=== PATIENT | female | born 1950 | race Caucasian/White ===

== ENCOUNTER 2018-07-06 05:34 | Outpatient (CLI) | payer MEDICARE ==
[~2018-07-06] VITALS: Ht 165.1 cm; Wt 93.0 kg
[~2018-07-06 05:34] MED LIST: ASP81TEC PO; MULT-608 PO; OMEP-10 PO; PRAV80TA2 PO
[2018-07-06] MEDS ORDERED: ASPI-999 PO (12:08)
[2018-07-06] MEDS ORDERED: OMEP20CA12 PO (12:08)
[2018-07-06] MEDS ORDERED: MULT1CAP27 PO (12:08)
[2018-07-06] MEDS ORDERED: LISI-556 PO (12:08)
== END 2018-07-06 12:12 | disposition home or self-care (01) ==
LOC: PREOP 05:34
PROVIDERS: ATTEND Otolaryngology Otolaryngology/Facial Plastic Surgery
DX: Z01.818 Encounter for other preprocedural examination (principal)

== ENCOUNTER 2018-07-14 08:27 | Day surgery (SDC) | payer MEDICARE ==
[~2018-07-14] VITALS: Ht 165.1 cm; Wt 93.0 kg
[~2018-07-14 08:27] MED LIST changes: +ASPI-999 PO; +LISI-556 PO; +MULT1CAP27 PO; +OMEP20CA12 PO
[2018-07-14] MEDS ORDERED: LACTATED RINGERS 1,000 ML IV PRN (08:38)
--- OUTSIDE RECORDS SUMMARY | 2018-07-14 08:47 | XMS REPORT ---
Author Author OFELIA MELENDEZ [facility] Address [address] [place] [address] Care Team Providers Care Compensation Business Partner Name Role Phone AL OFELIA Unavailable PROBLEMS Type Condition ICD9-CM Code [id number] Code Onset Dates Condition Status SNOMED Code Problem Essential (primary) hypertension I10 Active 82808098 Problem Type 2 diabetes mellitus without complications E11.9 Active 733829314 Problem Prediabetes R73.09 Active 684978387 Problem Essential hypertension I10 Active 74547488 Problem Mixed hyperlipidemia E78.2 Active 621426427 Problem Allergic rhinitis due to pollen J30.1 Active 19816650 ALLERGIES Substance Reaction Event Type Date Status Azithromycin Unknown Drug Allergy Mar, Active Penicillins Unknown Non Drug Allergy Mar, Active ENCOUNTERS Encounter Location Date Diagnosis [facility] [address] [place] [address] May, Well woman exam (no gynecological exam) Z00.00 and Blood glucose elevated R73.[address] [address] May, Mixed hyperlipidemia E78.[address] [address] Mar, Plant allergic contact dermatitis L23.[address] [address] February, [address] [address] Jan, Mixed hyperlipidemia E78.[address] [address] Jan, Dizziness R42 ; Essential hypertension I10 and Type 2 diabetes mellitus without complications E11.[address] [address] Jul, Type 2 diabetes mellitus without complications E11.9 ; Mixed hyperlipidemia E78.2 and Essential hypertension I10 [facility] [address] [place] [address] Jun, [facility] [address] [place] [address] Jun, Type 2 diabetes mellitus without complications E11.9 ; Mixed hyperlipidemia E78.2 and Essential hypertension I10 [facility] [address] [place] [address] Jun, [facility] [address] [place] [address] May, [facility] [address] [place] [address] Apr, [facility] [address] [address] Apr, [facility] [address] [address] Apr, [facility] [address] [address] February, Mixed hyperlipidemia E78.2 and Type 2 diabetes mellitus without complications E11.[address] [address] February, Essential ( primary) hypertension I10 ; Type 2 diabetes mellitus without complications E11.9 and Mixed hyperlipidemia E78.[address] [address] Nov, [address] [address] May, Routine gynecological examination Z01.419 ; Breast cancer screening Z12.39 ; Screening for colon cancer Z12.11 ; Mixed hyperlipidemia E78.2 ; Allergic rhinitis due to pollen J30.1 ; Prediabetes R73.09 and Essential hypertension I10 [facility] [address] [place] [address] Apr, Type 2 diabetes mellitus without complications E11.9 ; Mixed hyperlipidemia E78.2 and Essential (primary) hypertension I10 [facility] [address] [place] [address] Sep, Urinary tract infection, site not specified N39.[address] [address] Aug, [facility] [place] [address] [place] [address] Aug, Hematuria R31.9 [facility] [place] [address] [place] [address] Jul, [facility] [place] [address] [place] [address] Jun, Essential hypertension, benign 401.1 ; Mixed hyperlipidemia 272.2 and Diabetes mellitus without mention of complication, type II or unspecified type, not stated as uncontrolled 250.00 [facility] [place] [address] [place] [address] May, [facility] [address] [place], [place] [address] [place] [address] Jan, [facility] [address] [place] [id number] [place] [address] Jan, [facility] [place] [address] [place] [address] Dec, [facility] [address] [place] [address] [place] [address] Dec, [facility] [address] [place] [address] Nov, [facility] [address] [place] [address] [place] [address] Nov, [facility] [address] [place] [address] [address] Aug, [facility] [place] [address] [place] [address] Aug, [facility] [place] [address] [place] [address] Jul, [facility] [address] [place] [address] [place] [address] Jul, [facility] [place] [address] [place] [address] Jul, [facility] [address] [place] [id number] [address] Jul, [facility] [place] [address] [facility] [place] [address] Jun, [facility] [place] [address] [facility] [place] [address] Jun, [facility] [address] [facility] [id number] [address] Jun, [facility] [address] [id number] [place] [address] Jun, [facility] [place] [address] [place] [address] May, [facility] [address] [id number] [address] May, [facility] [place] [address] [place] [address] Mar, [facility] [address] [id number] [address] Mar, [facility] [place] [address] [place] [address] February, [facility] [address] [id number] [address] February, [facility] [address] [id number] [address] Jan, [facility] [place] [address] [place] [address] Jan, [facility] [address] [id number] [address] Jan, [facility] [place] [address] [place] [address] Dec, [facility] [place] [address] [place] [address] Dec, [facility] [address] [id number] [address] Dec, [facility] [address] [id number] [address] Dec, [facility] [address] [id number] [address] Dec, [facility] [address] [place] [address] Dec, [facility] [address] [address] Dec, [facility] [place] [address] Nov, [facility] [address] [place] [address] Nov, [facility] [address] [place] [address] Oct, [facility] [address] [place] [address] Oct, [facility] [address]65100[place] [address] Oct, [address] [address] Oct, IMMUNIZATIONS No Known Immunizations SOCIAL HISTORY Never Assessed REASON FOR VISIT poison hermilo under eye since yesterday. Kerry PLAN OF CARE Activity Details Follow Up prn Reason: VITAL SIGNS Height 64 in 2018-03-25 Weight 217.0 lbs 2018-03-25 Temperature 98.7 degrees Fahrenheit 2018-03-25 Heart Rate 88 bpm 2018-03-25 Respiratory Rate 18 2018-03-25 BMI 37.24 kg/m2 2018-03-25 Blood pressure systolic 104 mmHg 2018-03-25 Blood pressure diastolic 68 mmHg 2018-03-25 MEDICATIONS Medication Instructions Dosage Frequency Start Date End Date Duration Status Fluticasone Propionate 50 MCG/ACT Nasally Once a day 1 spray in each nostril 24h Active Multivitamin Adult - Active Aspirin 81 mg chew 1 tablet (81 mg) by oral route once daily Oct, Active Omeprazole 20 mg TAKE ONE CAPSULE BY MOUTH ONCE DAILY BEFORE A MEAL. 30 Active Lisinopril 5 MG TAKE ONE TABLET BY MOUTH ONCE DAILY. Active ICaps Lutein & Zeaxanthin - Orally Once a day 2 tabs 24h Active RESULTS No Results PROCEDURES Procedure Date Ordered Result Body Site [facility] VISIT ESTABLISHED PATIENT March 25, 2018 INSTRUCTIONS MEDICATIONS ADMINISTERED No Known Medications MEDICAL (GENERAL) HISTORY Type Description Date Surgical History breast reduction 1978 Surgical History right ankle fracture 1999 Surgical History right ear surgery 2015 Hospitalization History surgeries
--- OUTSIDE RECORDS SUMMARY | 2018-07-14 08:47 | XMS REPORT ---
Author Author LUKE GONG Organization [facility] [address] [place] Address [address] [place] [address] Care Team Providers Care Film Sound Engineer Name Role Phone LUKE GONG Unavailable PROBLEMS Type Condition ICD9-CM Code [id number] Code Onset Dates Condition Status SNOMED Code Problem Essential (primary) hypertension I10 Active 67172836 Problem Type 2 diabetes mellitus without complications E11.9 Active 311989200 Problem Prediabetes R73.09 Active 072155896 Problem Essential hypertension I10 Active 30560676 Problem Mixed hyperlipidemia E78.2 Active 952856185 Problem Allergic rhinitis due to pollen J30.1 Active 21896357 ALLERGIES No Information ENCOUNTERS Encounter Location Date Diagnosis [facility] [address] [place] [address] [place] [address] May, Well woman exam (no gynecological exam) Z00.00 and Blood glucose elevated R73.9 [facility] [address] [address] May, Mixed hyperlipidemia E78.[address] [address] Mar, Plant allergic contact dermatitis L23.[address] [address] February, [address] [address] Jan, Mixed hyperlipidemia E78.[address] [address] Jan, Dizziness R42 ; Essential hypertension I10 and Type 2 diabetes mellitus without complications E11.[address] [address] Jul, Type 2 diabetes mellitus without complications E11.9 ; Mixed hyperlipidemia E78.2 and Essential hypertension I10 [facility] [address] [place] [address] Jun, [facility] [place] [address] [place] [address] Jun, Type 2 diabetes mellitus without complications E11.9 ; Mixed hyperlipidemia E78.2 and Essential hypertension I10 [facility] [place] [address] [place] [address] Jun, [facility] [address] [place] [address] May, [facility] [address] [place] [address] Apr, [facility] [place] [address] [place] [address] Apr, [facility] [place] [address] [place] [address] Apr, [facility] [place] [address] [place] [address] February, Mixed hyperlipidemia E78.2 and Type 2 diabetes mellitus without complications E11.9 [facility] [place] [address] [place] [address] February, Essential ( primary) hypertension I10 ; Type 2 diabetes mellitus without complications E11.9 and Mixed hyperlipidemia E78.2 [facility] [place] [address] [place] [address] Nov, [facility] [place] [address] [place] [address] May, Routine gynecological examination Z01.419 ; Breast cancer screening Z12.39 ; Screening for colon cancer Z12.11 ; Mixed hyperlipidemia E78.2 ; Allergic rhinitis due to pollen J30.1 ; Prediabetes R73.09 and Essential hypertension I10 [facility] [place] [address] [place] [address] Apr, Type 2 diabetes mellitus without complications E11.9 ; Mixed hyperlipidemia E78.2 and Essential (primary) hypertension I10 [facility] [place] [address] [place] [address] Sep, Urinary tract infection, site not specified N39.0 [facility] [place] [address] [place] [address] Aug, [facility] [place] [address] [place] [address] Aug, Hematuria R31.9 [facility] [place] [address] [place] [address] Jul, [facility] [place] [address] [place] [address] Jun, Essential hypertension, benign 401.1 ; Mixed hyperlipidemia 272.2 and Diabetes mellitus without mention of complication, type II or unspecified type, not stated as uncontrolled 250.00 [facility] [place] [address] [place] [address] May, [facility] [address] [place] [id number] [place] [address] Jan, [facility] [address] [place] [id number] [place] [address]- [address] Jan, [facility] [place] [address] [place] [address] Dec, [facility] [address] [place] [id number] [place] [address]- [address] Dec, [facility] [place] [address] [place] [address] Nov, [facility] [id number] [place] [address] Nov, [facility] [address] [place] [address] [place] [address] Aug, [facility] [place] [address] [place] [address] Aug, [facility] [place] [address] [place] [address] Jul, [facility] [address] [place] [address] Jul, [facility] [place] [address] [place] [address] Jul, [facility] [address] [facility] [place] [id number] [address] Jul, [facility] [place] [address] [place] [address] Jun, [facility] [place] [address] [place] [address] Jun, [facility] [address] [place] [id number] [address] Jun, [facility] [id number] [address] 269[address] Jun, [facility] [place] [address] [place] [address] May, [facility] [address] [id number] [address] May, [facility] [place] [address] [place] [address] Mar, [facility] [address] [place] [id number] [address] Mar, [facility] [place] [address] [place] [address] February, [facility] [address] [id number] [address] February, [facility] [address] [id number] [address] Jan, [facility] [place] [address] [place] [address] Jan, [facility] [address] [id number] [address] Jan, [facility] [place] [address] [place] [address] Dec, [facility] [place] [address] [place] [address] Dec, [facility] [address] [id number] [address] Dec, [facility] [address] [address] Dec, [facility] [address], [place] [address] Dec, [facility] [address] [place] [address] Dec, [facility] [address] [place] [address]- [address] Dec, [facility] [address] [place] [address] Nov, [facility] [address] [place] [address]- 5027 Nov, [facility] [address] [id number] [place] [address] Oct, [facility] [place] [address] [place] [address] Oct, [facility] [address]100[place] [address] Oct, [facility] [address] [place] [address] Oct, IMMUNIZATIONS No Known Immunizations SOCIAL HISTORY Never Assessed REASON FOR VISIT Lab (walk-in)FASTING Jbishop PLAN OF CARE Activity Details Follow Up prn Reason: VITAL SIGNS MEDICATIONS Unknown Medications RESULTS No Results PROCEDURES Procedure Date Ordered Result Body Site LAB NOT BILLED BY [facility] Jun 09, 2018 HIRA HUGO* Jun 09, 2018 INSTRUCTIONS MEDICATIONS ADMINISTERED No Known Medications MEDICAL (GENERAL) HISTORY Type Description Date Surgical History breast reduction 1978 Surgical History right ankle fracture 1999 Surgical History right ear surgery 2014 Hospitalization History surgeries
--- OUTSIDE RECORDS SUMMARY | 2018-07-14 08:47 | XMS REPORT ---
Author Author LUKE GONG Organization [facility] [address] [place] Address [address] [place] [address] Care Team Providers Care Rope Laying Machine Operator Name Role Phone LUKE GONG Unavailable PROBLEMS Type Condition ICD9-CM Code SBA32-ZB Code Onset Dates Condition Status SNOMED Code Problem Essential (primary) hypertension I10 Active 43491373 Problem Type 2 diabetes mellitus without complications E11.9 Active 364390705 Problem Prediabetes R73.09 Active 932627375 Problem Essential hypertension I10 Active 65474110 Problem Mixed hyperlipidemia E78.2 Active 557656016 Problem Allergic rhinitis due to pollen J30.1 Active 65207374 ALLERGIES No Information ENCOUNTERS Encounter Location Date Diagnosis [facility] [place] [address] [place] [address] Mar, Plant allergic contact dermatitis L23.7 [facility] [place] [address] [place] [address] February, [facility] [place] [address] [place] [address] Jan, Mixed hyperlipidemia E78.[address] [address] Jan, Dizziness R42 ; Essential hypertension I10 and Type 2 diabetes mellitus without complications E11.9 [facility] [place] [address] [place] [address] Jul, Type 2 diabetes mellitus without complications E11.9 ; Mixed hyperlipidemia E78.2 and Essential hypertension I10 [facility] [place] [address] [place] [address] Jun, [facility] [address] [address] Jun, Type 2 diabetes mellitus without complications E11.9 ; Mixed hyperlipidemia E78.2 and Essential hypertension I10 [facility] [place] [address] [place] [address] Jun, [facility] [address] [address] May, [facility] [place] [address] [place] [address] Apr, [facility] [place] [address] [place] [address] Apr, [facility] [place] [address] [place] [address] Apr, [facility] [address] [address] February, Mixed hyperlipidemia E78.2 and Type 2 diabetes mellitus without complications E11.9 [facility] [address] [address] February, Essential ( primary) hypertension I10 ; Type 2 diabetes mellitus without complications E11.9 and Mixed hyperlipidemia E78.2 [facility] [address] [address] Nov, [facility] [address] [address] May, Routine gynecological examination Z01.419 ; Breast cancer screening Z12.39 ; Screening for colon cancer Z12.11 ; Mixed hyperlipidemia E78.2 ; Allergic rhinitis due to pollen J30.1 ; Prediabetes R73.09 and Essential hypertension I10 [address] [address] Apr, Type 2 diabetes mellitus without complications E11.9 ; Mixed hyperlipidemia E78.2 and Essential (primary) hypertension I10 [facility] [address] [address] Sep, Urinary tract infection, site not specified N39.0 [facility] [address] [address] Aug, [facility] [address] [address] Aug, Hematuria R31.[address] [address] Jul, [address] [address] Jun, Essential hypertension, benign 401.1 ; Mixed hyperlipidemia 272.2 and Diabetes mellitus without mention of complication, type II or unspecified type, not stated as uncontrolled 250.[address] [address] May, [facility] [address] [facility] [id number] [address] 14 Jan, 2014 [facility] [address] [address] [id number] [address]- [address] Jan, 2014 [facility] [place] [address] [place] [address] Dec, 2014 [facility] [address] [address] Dec, 2014 [facility] [place] [address] [place] [address] Nov, 2014 [facility] [address] [place] [id number] [address] Nov, 2014 [facility] [address] [address]- [address] Aug, [facility] [place] [address] [place] [address] Aug, [facility] [place] [address] [place] [address] Jul, [facility] [address] [id number] [address]- [address] Jul, [facility] [place] [address] [place] [address] Jul, [facility] [address] [address] Jul, [facility] [place] [address] [place] [address] Jun, [facility] [place] [address] [place] [address] Jun, [facility] [address] [id number] [address]- [address] Jun, [facility] [address] [id number] [address]- 2364 Jun, [facility] [place] [address] [place] [address] May, [facility] [address] [address] May, [facility] [place] [address] [place] [address] Mar, [facility] [address] [address]- [address] Mar, [facility] [place] [address] [place] [address] February, [facility] [address] [address] February, [facility] [address] [address] Jan, [facility] [place] [address] [place] [address] Jan, [facility] [address] [place] [address] Jan, [facility] [place] [address] [place] [address] Dec, [facility] [place] [address] [place] [address] Dec, [facility] [address] [address] Dec, [facility] [address] [place] [address] Dec, [facility] [address] [address]- [address] Dec, [facility] [place] [address] [place] [address] Dec, [facility] [address] [address]- [address] Dec, [facility] [place] [address] [place] [address] Nov, [facility] [address] [id number] [address]- 1817 Nov, [facility] [id number] [address]- 78[address] Oct, [facility] [place] [address] [place] [address] Oct, [facility] [address] [facility] [id number] [address] Oct, [facility] [address] [place] [address] Oct, IMMUNIZATIONS No Known Immunizations SOCIAL HISTORY Never Assessed REASON FOR VISIT Lab results PLAN OF CARE VITAL SIGNS MEDICATIONS Unknown Medications RESULTS No Results PROCEDURES No Known procedures INSTRUCTIONS MEDICATIONS ADMINISTERED No Known Medications MEDICAL (GENERAL) HISTORY Type Description Date Surgical History breast reduction 1978 Surgical History right ankle fracture 1999 Surgical History right ear surgery 2014 Hospitalization History surgeries
--- OUTSIDE RECORDS SUMMARY | 2018-07-14 08:47 | XMS REPORT ---
Author Author LUKE GONG Organization [facility] [address] [place] Address [address] [place] [address] Care Team Providers Care Geosciences Associate Professor Name Role Phone LUKE GONG Unavailable PROBLEMS Type Condition ICD9-CM Code NTE19-ZT Code Onset Dates Condition Status SNOMED Code Problem Essential (primary) hypertension I10 Active 17786383 Problem Type 2 diabetes mellitus without complications E11.9 Active 328517461 Problem Prediabetes R73.09 Active 082184000 Problem Essential hypertension I10 Active 11503633 Problem Mixed hyperlipidemia E78.2 Active 198648231 Problem Allergic rhinitis due to pollen J30.1 Active 96090480 ALLERGIES No Information ENCOUNTERS Encounter Location Date Diagnosis [facility] [address] [place] [address] Mar, Plant allergic contact dermatitis L23.[address] [address] February, [address] [address] Jan, Mixed hyperlipidemia E78.[address] [address] Jan, Dizziness R42 ; Essential hypertension I10 and Type 2 diabetes mellitus without complications E11.[address] [address] Jul, Type 2 diabetes mellitus without complications E11.9 ; Mixed hyperlipidemia E78.2 and Essential hypertension I10 [address] [address] Jun, [address] [address] Jun, Type 2 diabetes mellitus without complications E11.9 ; Mixed hyperlipidemia E78.2 and Essential hypertension I10 [address] [address] Jun, [address] [address] May, [address] [address] Apr, [address] [address] Apr, [address] [address] Apr, [address] [address] February, Mixed hyperlipidemia E78.2 and Type 2 diabetes mellitus without complications E11.[address] [address] February, Essential ( primary) hypertension I10 ; Type 2 diabetes mellitus without complications E11.9 and Mixed hyperlipidemia E78.[address] [address] Nov, [address] [address] May, Routine gynecological examination Z01.419 ; Breast cancer screening Z12.39 ; Screening for colon cancer Z12.11 ; Mixed hyperlipidemia E78.2 ; Allergic rhinitis due to pollen J30.1 ; Prediabetes R73.09 and Essential hypertension I10 [address] [address] Apr, Type 2 diabetes mellitus without complications E11.9 ; Mixed hyperlipidemia E78.2 and Essential (primary) hypertension I10 [address] [address] Sep, Urinary tract infection, site not specified N39.[address] [address] Aug, [address] [address] Aug, Hematuria R31.[address] [address] Jul, [address] [address] Jun, Essential hypertension, benign 401.1 ; Mixed hyperlipidemia 272.2 and Diabetes mellitus without mention of complication, type II or unspecified type, not stated as uncontrolled 250.00 [facility] [place] [address] [place] [address] May, [facility] [address] [address] Jan, [facility] [address] [address] Jan, [facility] [place] [address] [place] [address] Dec, [facility] [address] [address] Dec, [facility] [place] [address] [place] [address] Nov, [facility] [address] [address] Nov, [facility] [address] [address] Aug, [facility] [place] [address] [place] [address] Aug, [facility] [place] [address] [place] [address] Jul, [facility] [address] [address] Jul, [facility] [place] [address] [place] [address] Jul, [facility] [address] [address] Jul, [facility] [place] [address] [place] [address] Jun, [facility] [place] [address] [place] [address] Jun, [facility] [id number] [address] Jun, [facility] [address] [address] Jun, [facility] [place] [address] [place] [facility] [place] [address] May, [facility] [id number] [address] May, [facility] [place] [address] [place] [address] Mar, [facility] [id number] [address] Mar, [facility] [place] [address] [place] [address] February, [facility] [id number] [address] February, [facility] [id number] [address] Jan, [facility] [place] [address] [place] [address] Jan, [facility] [id number] [address] Jan, [facility] [place] [address] [place] [facility] [place] [address] Dec, [facility] [place] [address] [place] [address] 18 Dec, 2013 [facility] [id number] [address] 18 Dec, 2013 [facility] [id number] [address] 18 Dec, 2013 [facility] [id number] [address] 14 Dec, 2013 [facility] [place] [address] [place] [address] 13 Dec, 2013 [facility] [id number] [address] 13 Dec, 2013 [facility] [place] [address] [place] [address] Nov, [facility] [address] [facility] [id number] [address] Nov, [facility] [address] [facility] [id number] [address] Oct, [address] [address] Oct, [facility] [address] [facility] [id number] [address] Oct, [address] [address] Oct, IMMUNIZATIONS No Known Immunizations SOCIAL HISTORY Never Assessed REASON FOR VISIT med refill request PLAN OF CARE VITAL SIGNS MEDICATIONS Medication Instructions Dosage Frequency Start Date End Date Duration Status Omeprazole 20 mg TAKE ONE CAPSULE BY MOUTH ONCE DAILY BEFORE A MEAL. 30 Active RESULTS No Results PROCEDURES No Known procedures INSTRUCTIONS MEDICATIONS ADMINISTERED No Known Medications MEDICAL (GENERAL) HISTORY Type Description Date Surgical History breast reduction 1978 Surgical History right ankle fracture 1999 Surgical History right ear surgery 2014 Hospitalization History surgeries
--- OUTSIDE RECORDS SUMMARY | 2018-07-14 08:48 | XMS REPORT ---
Author Author LUKE GONG Organization [facility] [address] [place] Address [address] [place] [address] Care Team Providers Care Core Drill Operator Helper Name Role Phone LUKE GONG Unavailable PROBLEMS Type Condition ICD9-CM Code AVH23-HO Code Onset Dates Condition Status SNOMED Code Problem Essential (primary) hypertension I10 Active 26310088 Problem Type 2 diabetes mellitus without complications E11.9 Active 800691381 Problem Prediabetes R73.09 Active 590147021 Problem Essential hypertension I10 Active 87457011 Problem Mixed hyperlipidemia E78.2 Active 723931655 Problem Allergic rhinitis due to pollen J30.1 Active 33689031 ALLERGIES Substance Reaction Event Type Date Status Azithromycin Unknown Drug Allergy Jan, Active Penicillins Unknown Non Drug Allergy Jan, Active Macrolides Unknown Non Drug Allergy Jan, Active ENCOUNTERS Encounter Location Date Diagnosis [facility] [place] [address] [place] [address] Mar, Plant allergic contact dermatitis L23.7 [facility] [address] [address] February, [facility] [address] [address] Jan, Mixed hyperlipidemia E78.2 [facility] [place] [address] [place] [address] Jan, Dizziness R42 ; Essential hypertension I10 and Type 2 diabetes mellitus without complications E11.9 [facility] [place] [address] [place] [address] Jul, Type 2 diabetes mellitus without complications E11.9 ; Mixed hyperlipidemia E78.2 and Essential hypertension I10 [facility] [place] [address] [place] [address] Jun, [facility] [address] [address] Jun, Type 2 diabetes mellitus without complications E11.9 ; Mixed hyperlipidemia E78.2 and Essential hypertension I10 [facility] [place] [address] [place] [address], [place] [address] Jun, [facility] [place] [address] [place] [address] May, [facility] [place] [address] [place] [address] Apr, [facility] [place] [address] [place] [address] Apr, [facility] [place] [address] [place] [address] Apr, [facility] [place] [address] [place] [address] February, Mixed hyperlipidemia E78.2 and Type 2 diabetes mellitus without complications E11.9 [facility] [place] [address] [place] [address] February, Essential ( primary) hypertension I10 ; Type 2 diabetes mellitus without complications E11.9 and Mixed hyperlipidemia E78.2 [facility] [place] [address] [place] [address] Nov, [facility] [place] [address] [place] [address] May, Routine gynecological examination Z01.419 ; Breast cancer screening Z12.39 ; Screening for colon cancer Z12.11 ; Mixed hyperlipidemia E78.2 ; Allergic rhinitis due to pollen J30.1 ; Prediabetes R73.09 and Essential hypertension I10 [facility] [place] [address] [place] [address] Apr, Type 2 diabetes mellitus without complications E11.9 ; Mixed hyperlipidemia E78.2 and Essential (primary) hypertension I10 [facility] [place] [address] [place] [address] Sep, Urinary tract infection, site not specified N39.0 [facility] [place] [address] [place] [address] Aug, [facility] [place] [address] [place] [address] Aug, Hematuria R31.9 [facility] [place] [address] [place] [address] Jul, [facility] [place] [address] [place] [address] Jun, Essential hypertension, benign 401.1 ; Mixed hyperlipidemia 272.2 and Diabetes mellitus without mention of complication, type II or unspecified type, not stated as uncontrolled 250.00 [facility] [place] [address] [place] [address] May, [facility] [address] [address] Jan, [facility] [address] [address] Jan, [facility] [place] [address] [place] [address] Dec, [facility] [address] [place] [address] Dec, [facility] [place] [address] [place] [address] Nov, [facility] [address] [place] [address] Nov, [facility] [address] [place] [address] Aug, [facility] [place] [address] [place] [address] Aug, [facility] [place] [address] [place] [address] Jul, [facility] [address] [address] Jul, [facility] [place] [address] [place] [address] Jul, [facility] [address] [address] Jul, [facility] [place] [address] [place] [address] Jun, [facility] [place] [address] [place] [address] Jun, [facility] [address] [address] Jun, [facility] [address] [address] Jun, [facility] [place] [address] [place] [address] May, [facility] [address] [facility] [id number] [address] May, [facility] [place] [address] [place] [address] Mar, [facility] [address] [facility] [id number] [address] Mar, [facility] [place] [address] [place] [address] February, [facility] [address] [facility] [id number] [address] February, [facility] [address] [facility] [id number] [place] [address] Jan, [facility] [place] [address] [place] [address] Jan, [facility] [id number] [address] Jan, [facility] [place] [address] [place] [address] Dec, [facility] [place] [address] [place] [address] Dec, [facility] [id number] [place] [address] Dec, [facility] [id number] [address] Dec, [facility] [id number] [address] Dec, [facility] [place] [address] [place] [address] Dec, [facility] [address] [facility] [id number] [address] Dec, [facility] [place] [address] [place] [address] Nov, [facility] [id number] [address] Nov, [facility] [id number] [address] Oct, [facility] [place] [address] [place] [address] Oct, [facility] [address] [facility] [id number] [place] [address] Oct, [facility] [place] [address] [place] [address] Oct, IMMUNIZATIONS No Known Immunizations SOCIAL HISTORY Never Assessed REASON FOR VISIT Dizziness this past weekend, notices it when her head is below her shoulders, BP has been elevated at times Debbie Bernal PLAN OF CARE Activity Details Follow Up prn Reason: VITAL SIGNS Height 64 in 2018-02-07 Weight 213.9 lbs 2018-02-07 Temperature 98 degrees Fahrenheit 2018-02-07 Heart Rate 98 bpm 2018-02-07 Respiratory Rate 18 2018-02-07 BMI 36.71 kg/m2 2018-02-07 Blood pressure systolic 128 mmHg 2018-02-07 Blood pressure diastolic 94 mmHg 2018-02-07 MEDICATIONS Medication Instructions Dosage Frequency Start Date End Date Duration Status Fluticasone Propionate 50 MCG/ACT Nasally Once a day 1 spray in each nostril 24h Active Multivitamin Adult - Active Omeprazole 20MG TAKE ONE CAPSULE BY MOUTH ONCE DAILY BEFORE A MEAL. 30 Active ICaps Lutein & Zeaxanthin - Orally Once a day 2 tabs 24h Active Aspirin 81 mg chew 1 tablet (81 mg) by oral route once daily Oct, Active Lisinopril 5 MG TAKE ONE TABLET BY MOUTH ONCE DAILY. Active RESULTS No Results PROCEDURES Procedure Date Ordered Result Body Site ROUTINE VENIPUNCTURE 2018-02-07 N/A Hemoglobin Test Send Out 0 dollar February 07, 2018 [facility] VISIT ESTABLISHED PATIENT February 07, 2018 LAB NOT BILLED BY [facility] February 07, 2018 INSTRUCTIONS MEDICATIONS ADMINISTERED No Known Medications MEDICAL (GENERAL) HISTORY Type Description Date Surgical History breast reduction 1978 Surgical History right ankle fracture 1999 Surgical History right ear surgery 2014 Hospitalization History surgeries
--- OUTSIDE RECORDS SUMMARY | 2018-07-14 08:48 | XMS REPORT ---
Author Author ZI COY [facility] Address [address] [place] [address] Care Team Providers Care Vessel Scrapper Name Role Phone ZI COY Unavailable PROBLEMS Type Condition ICD9-CM Code YVO96-LS Code Onset Dates Condition Status SNOMED Code Problem Other and unspecified hyperlipidemia 272.4 Active 59547363 Problem Diabetes mellitus without mention of complication, type II or unspecified type, not stated as uncontrolled 250.00 Active 039115730 Problem Mixed hyperlipidemia 272.2 Active 194352745 Problem Essential (primary) hypertension I10 Active 13924424 Problem Type 2 diabetes mellitus without complications E11.9 Active 710804124 Problem Prediabetes R73.09 Active 302275066 Problem Essential hypertension I10 Active 41506053 Problem Mixed hyperlipidemia E78.2 Active 596301602 Problem Allergic rhinitis due to pollen J30.1 Active 69639158 Problem Unspecified abnormal mammogram 793.80 Active 520546968 Problem Chest pain, unspecified 786.50 Active 18892548 Problem Routine gynecological examination V72.31 Active 833986802989525 Problem Essential hypertension, benign 401.1 Active 5552868 Problem Unspecified otalgia 388.70 Active 60966975 Problem Urinary tract infection, site not specified 599.0 Active 35994082 Problem Impacted cerumen 380.4 Active 52017522 Problem Unspecified essential hypertension 401.9 Active 62169893 Problem Obesity, unspecified 278.00 Active 988931905 ALLERGIES No Information SOCIAL HISTORY Never Assessed PLAN OF CARE Activity Details Follow Up prn Reason: VITAL SIGNS MEDICATIONS No Known Medications RESULTS Name Result Date Reference Range A1C 2017-03-03 Hemoglobin A1c 6.2 4.8-5.6 CBC 2017-03-03 WBC 6.8 3.4-10.8 RBC 4.50 3.77-5.28 Hemoglobin 13.5 11.1-15.9 Hematocrit 40.1 34.0-46.6 MCV 89 79-97 MCH 30.0 26.6-33.0 MCHC 33.7 31.5-35.7 RDW 13.5 12.3-15.4 Platelets 258 150-379 Neutrophils 53 Lymphs 36 Monocytes 8 Eos 3 Basos 0 Neutrophils (Absolute) 3.6 1.4-7.0 Lymphs (Absolute) 2.5 0.7-3.1 Monocytes(Absolute) 0.5 0.1-0.9 Eos (Absolute) 0.2 0.0-0.4 Baso (Absolute) 0.0 0.0-0.2 Immature Granulocytes 0 Immature Grans (Abs) 0.0 0.0-0.1 LIPID PANEL 2017-03-03 Cholesterol, Total 231 100-199 Triglycerides 193 0-149 HDL Cholesterol 46 >39 VLDL Cholesterol Nelson 39 5-40 LDL Cholesterol Calc 146 0-99 CMP 2017-03-03 Glucose, Serum 154 65-99 BUN 20 8-27 Creatinine, Serum 0.75 0.57-1.00 eGFR If NonAfricn Am 83 >59 eGFR If Africn Am 96 >59 BUN/Creatinine Ratio 27 12-28 Sodium, Serum 142 134-144 Potassium, Serum 4.1 3.5-5.2 Chloride, Serum 104 96-106 Carbon Dioxide, Total 22 18-29 Calcium, Serum 9.4 8.7-10.3 Protein, Total, Serum 7.0 6.0-8.5 Albumin, Serum 4.5 3.6-4.8 Globulin, Total 2.5 1.5-4.5 A/G Ratio 1.8 1.2-2.2 Bilirubin, Total 0.7 0.0-1.2 Alkaline Phosphatase, S 83 39-117 AST (SGOT) 74 0-40 ALT (SGPT) 74 0-32 PROCEDURES Procedure Date Ordered Result Body Site ROUTINE VENIPUNCTURE 2017-03-03 N/A GLYCATED HEMOGLOBIN TEST March 03, 2017 LAB NOT BILLED BY [facility] March 03, 2017 IMMUNIZATIONS No Known Immunizations MEDICAL (GENERAL) HISTORY Type Description Date Surgical History breast reduction 1978 Surgical History right ankle fracture 1999 Surgical History right ear surgery 2014 Hospitalization History surgeries
--- OUTSIDE RECORDS SUMMARY | 2018-07-14 08:48 | XMS REPORT ---
Author Author [facility] [place] Address [address] [place] [address] Care Team Providers Care Test Preparer Name Role Phone ZI COY Unavailable PROBLEMS Type Condition ICD9-CM Code EFZ43-[id number] Code Onset Dates Condition Status SNOMED Code Problem Essential (primary) hypertension I10 Active 11959550 Problem Type 2 diabetes mellitus without complications E11.9 Active 991556071 Problem Prediabetes R73.09 Active 788314765 Problem Essential hypertension I10 Active 86256174 Problem Mixed hyperlipidemia E78.2 Active 693250528 Problem Allergic rhinitis due to pollen J30.1 Active 77056949 ALLERGIES No Information ENCOUNTERS Encounter Location Date Diagnosis [facility] [place] [address] [facility] [address] [id number] [place] [id number] Jan, [facility] [place] [address] [place] [address] [address] [id number] [place] [id number] Jan, Dizziness R42 ; Essential hypertension I10 and Type 2 diabetes mellitus without complications E11.9 [facility] [place] [address] [facility] [address] [id number] [place] [id number] Jul, Type 2 diabetes mellitus without complications E11.9 ; Mixed hyperlipidemia E78.2 and Essential hypertension I10 [facility] [place] [address] [facility] [address] [id number] [place] [id number] Jun, [facility] [place] [address] [facility] [address] [id number] [place] [id number] Jun, Type 2 diabetes mellitus without complications E11.9 ; Mixed hyperlipidemia E78.2 and Essential hypertension I10 [facility] [place] [address] [facility] [address] [id number] [place] [id number] Jun, [facility] [place] [address] [facility] [address] [id number] [place] [id number] May, [facility] [place] [address] [facility] [address] [id number] [place] [id number] Apr, [facility] [place] [address] [facility] [address] [id number] [place] [id number] Apr, [facility] [place] [address] [facility] [address] [id number] [place] [id number] Apr, [facility] [place] [address] [facility] [address] [id number] [place] [id number] February, Mixed hyperlipidemia E78.2 and Type 2 diabetes mellitus without complications E11.9 [facility] [place] [address] [facility] [address] [id number] [place] [id number] February, Essential (primary) hypertension I10 ; Type 2 diabetes mellitus without complications E11.9 and Mixed hyperlipidemia E78.2 [facility] [place] [address] [place] [address] [address] [id number] [place] [id number] Nov, [facility] [place] [address] [facility] [address] [id number] [place] [id number] May, Routine gynecological examination Z01.419 ; Breast cancer screening Z12.39 ; Screening for colon cancer Z12.11 ; Mixed hyperlipidemia E78.2 ; Allergic rhinitis due to pollen J30.1 ; Prediabetes R73.09 and Essential hypertension I10 [facility] [place] [address] [facility] [address] [id number] [place] [id number] Apr, Type 2 diabetes mellitus without complications E11.9 ; Mixed hyperlipidemia E78.2 and Essential (primary) hypertension I10 [facility] [place] [address] [facility] [address] [id number] [place] [address] Sep, Urinary tract infection, site not specified N39.0 [facility] [place] [address] [facility] [address] [id number] [place] [id number] Aug, [facility] [place] [address] [facility] [address] [id number] [place] [id number] Aug, Hematuria R31.9 [facility] [place] [address] [facility] [address] [id number] [place] [address] Jul, [facility] [place] [address] [facility] [address] [id number] [place] [address]0007 Jun, Essential hypertension, benign 401.1 ; Mixed hyperlipidemia 272.2 and Diabetes mellitus without mention of complication, type II or unspecified type, not stated as uncontrolled 250.00 [facility] [place] [address] [id number] [place] [id number] May, [facility] [address] [facility] [id number] [place] [address] Jan, [facility] [address] [facility] [id number] [place] [address] Jan, [facility] [place] [address] [facility] [address] [id number] [place] [id number] Dec, [facility] [address] [facility] [id number] [place] [address] Dec, [facility] [place] [address] [facility] [address] [id number] [place] [id number] Nov, [facility] [address] [facility] [id number] [place] [address] Nov, [facility] [place] [facility] [address] [facility] [id number] [facility] [address] Aug, [facility] [place] [address] [facility] [address] [id number] [place] [id number] Aug, [facility] [place] [address] [facility] [address] [id number] [place] [id number] Jul, [facility] [address] [facility] [id number] [place] [address]46 Jul, [facility] [place] [address] [id number] [place] [id number] Jul, [facility] [address] [facility] [id number] [place] [address] Jul, [facility] [place] [address] [facility] [address] [id number] [place] [address]44 Jun, [facility] [place] [address] [id number] [place] [address] Jun, [facility] [place] [facility] [address] [facility] [id number] [facility] [address] Jun, [facility] [place] [facility] [address] [id number] [facility] [address] Jun, [facility] [place] [address] [id number] [place] [id number] May, [facility] [address] [id number] [facility] May, [facility] [place] [address] [id number] [place] [id number] Mar, [facility] [address] [id number] [place] [address] Mar, [facility] [place] [address] [id number] [place] [id number] February, [facility] [address] [id number] [place] [address] February, [facility] [address] [id number] [place] [address] Jan, [facility] [place] [address] [id number] [place] [id number] Jan, [facility] [place] [facility] [address] [id number] [place] [address] Jan, [facility] [place] [address] [id number] [place] [id number] Dec, [facility] [place] [address] [id number] [place] [id number] Dec, [facility] [place] [facility] [address] [id number] [facility] [address] Dec, [facility] [place] [facility] [address] [id number] [place] [address] Dec, [facility] [place] [facility] [address] [id number] [facility] [address] Dec, [facility] [place] [address] [id number] [place] [id number] Dec, [facility] [address] [facility] [id number] [place] [address] Dec, [facility] [place] [address] [facility] [address] [id number] [place] [id number] Nov, [facility] [address] [facility] [id number], [place] [address] Nov, [facility] [address] [facility] [id number], [place] [address] Oct, [facility] [address] [facility] [address] [id number] [place] [address] Oct, [facility] [address] [facility] [id number] [place] [address] Oct, [facility] [address] [facility] [address] [id number] [place] [id number] Oct, IMMUNIZATIONS No Known Immunizations SOCIAL HISTORY Never Assessed REASON FOR VISIT PLAN OF CARE VITAL SIGNS MEDICATIONS Unknown Medications RESULTS No Results PROCEDURES No Known procedures INSTRUCTIONS MEDICATIONS ADMINISTERED No Known Medications MEDICAL (GENERAL) HISTORY Type Description Date Surgical History breast reduction 1978 Surgical History right ankle fracture 1999 Surgical History right ear surgery 2014 Hospitalization History surgeries
--- OUTSIDE RECORDS SUMMARY | 2018-07-14 08:48 | XMS REPORT ---
Author Author ZI COY Organization [employer] Address Unknown Phone Unavailable Care Team Providers Care Speech Therapy Teacher Name Role Phone ZI COY CP Unavailable Allergies No Known Allergies Problems Problem Type Condition Code Onset Dates Condition Status Problem Routine gynecological examination V72.31 Active Problem Unspecified essential hypertension 401.9 Active Problem Diabetes mellitus without mention of complication, type II or unspecified type, not stated as uncontrolled 250.00 Active Problem Unspecified abnormal mammogram 793.80 Active Problem Other and unspecified hyperlipidemia 272.4 Active Problem Urinary tract infection, site not specified 599.0 Active Problem Obesity, unspecified 278.00 Active Problem Unspecified otalgia 388.70 Active Problem Mixed hyperlipidemia 272.2 Active Problem Impacted cerumen 380.4 Active Problem Chest pain, unspecified 786.50 Active Problem Essential hypertension, benign 401.1 Active Medications Medication Code System Code Instructions Start Date End Date Status Dosage Atorvastatin Calcium [facility] [address]-18 40 MG Orally Once a day Jul 28, 2015 1 tablet Results No Known Results Summary Purpose eClinicalWorks Submission
--- OUTSIDE RECORDS SUMMARY | 2018-07-14 08:48 | XMS REPORT ---
Author Author ZI COY [facility] [place] Address [address] [place] [address] Care Team Providers Care Electrophysiologist Name Role Phone ZI COY Unavailable PROBLEMS Type Condition ICD9-CM Code AWJ66-SZ Code Onset Dates Condition Status SNOMED Code Problem Other and unspecified hyperlipidemia 272.4 Active 55631609 Problem Diabetes mellitus without mention of complication, type II or unspecified type, not stated as uncontrolled 250.00 Active 495777014 Problem Mixed hyperlipidemia 272.2 Active 029602044 Problem Essential (primary) hypertension I10 Active 08866625 Problem Type 2 diabetes mellitus without complications E11.9 Active 233821536 Problem Prediabetes R73.09 Active 113401638 Problem Essential hypertension I10 Active 83161849 Problem Mixed hyperlipidemia E78.2 Active 160987334 Problem Allergic rhinitis due to pollen J30.1 Active 56684351 Problem Unspecified abnormal mammogram 793.80 Active 351566722 Problem Chest pain, unspecified 786.50 Active 28428389 Problem Routine gynecological examination V72.31 Active 628964221263987 Problem Essential hypertension, benign 401.1 Active 4205473 Problem Unspecified otalgia 388.70 Active 81697419 Problem Urinary tract infection, site not specified 599.0 Active 65874726 Problem Impacted cerumen 380.4 Active 92455898 Problem Unspecified essential hypertension 401.9 Active 85188713 Problem Obesity, unspecified 278.00 Active 361766719 ALLERGIES No Information SOCIAL HISTORY Never Assessed PLAN OF CARE VITAL SIGNS MEDICATIONS Medication Instructions Dosage Frequency Start Date End Date Duration Status Omeprazole 20 mg take 1 capsule (20 mg) by oral route once daily before a meal Oct, 30 days Active RESULTS No Results PROCEDURES No Known procedures IMMUNIZATIONS No Known Immunizations MEDICAL (GENERAL) HISTORY Type Description Date Surgical History breast reduction 1978 Surgical History right ankle fracture 1999 Surgical History right ear surgery 2014 Hospitalization History surgeries
--- OUTSIDE RECORDS SUMMARY | 2018-07-14 08:48 | XMS REPORT ---
Author Author [facility]Y [facility] [place] Address [address] [place] [address] Care Team Providers Care Technical System Analyst Name Role Phone ZI COY Unavailable PROBLEMS Type Condition ICD9-CM Code SAL89-LM Code Onset Dates Condition Status SNOMED Code Problem Essential (primary) hypertension I10 Active 50866559 Problem Type 2 diabetes mellitus without complications E11.9 Active 751533142 Problem Prediabetes R73.09 Active 093103643 Problem Essential hypertension I10 Active 40187663 Problem Mixed hyperlipidemia E78.2 Active 041091248 Problem Allergic rhinitis due to pollen J30.1 Active 44757395 ALLERGIES No Information ENCOUNTERS Encounter Location Date Diagnosis [facility] [place] [address] [facility] [address] [id number] [place] [id number] Jan, Dizziness R42 ; Essential hypertension I10 and Type 2 diabetes mellitus without complications E11.9 [facility] [place] [address] [place] [address] [address] [id number] [place] [id number] Jul, Type 2 diabetes mellitus without complications E11.9 ; Mixed hyperlipidemia E78.2 and Essential hypertension I10 [facility] [place] [address] [place] [address] [address] [id number] [place] [id number] Jun, [facility] [place] [address] [place] [address] [address] [id number] [place] 9[address] Jun, Type 2 diabetes mellitus without complications E11.9 ; Mixed hyperlipidemia E78.2 and Essential hypertension I10 [facility] [place] [address] [facility] [address] [id number] [place] [id number] Jun, [facility] [place] [address] [facility] [address] [id number] [place] [id number] May, [facility] [place] [address] [place] [address] [address] [id number] [place] [id number] Apr, [facility] [place] [address] [place] [address] [address] [id number] [place] [id number] Apr, [facility] [place] [address] [facility] [address] [id number] [place] [id number] Apr, [facility] [place] [address] [facility] [address] [id number] [place] [id number] February, Mixed hyperlipidemia E78.2 and Type 2 diabetes mellitus without complications E11.9 [facility] [place] [address] [facility] [address] [id number] [place] [address] February, Essential (primary) hypertension I10 ; Type 2 diabetes mellitus without complications E11.9 and Mixed hyperlipidemia E78.2 [facility] [place] [address] [place] [address] [address] [id number] [place] [id number] Nov, [facility] [place] [address] [facility] [address] [id number] [place] [address] May, Routine gynecological examination Z01.419 ; Breast cancer screening Z12.39 ; Screening for colon cancer Z12.11 ; Mixed hyperlipidemia E78.2 ; Allergic rhinitis due to pollen J30.1 ; Prediabetes R73.09 and Essential hypertension I10 [facility] [place] [address] [facility] [address] [id number] [place] [id number] Apr, Type 2 diabetes mellitus without complications E11.9 ; Mixed hyperlipidemia E78.2 and Essential (primary) hypertension I10 [facility] [place] [address] [facility] [address] [id number] [place] [id number] Sep, Urinary tract infection, site not specified N39.0 [facility] [place] [address] [facility] [address] [id number] [place] [id number] Aug, [facility] [place] [address] [facility] [address] [id number] [place] [id number] Aug, Hematuria R31.9 [facility] [place] [address] [facility] [address] [id number] [place] [id number] Jul, [facility] [place] [address] [facility] [address] [id number] [place] [address] Jun, Essential hypertension, benign 401.1 ; Mixed hyperlipidemia 272.2 and Diabetes mellitus without mention of complication, type II or unspecified type, not stated as uncontrolled 250.00 [facility] [place] [address] [facility] [address] [id number] [place] [id number] May, [facility] [place] [facility] [address] [facility] [id number] [place] [address] Jan, [facility] [place] [facility] [address] [facility] [id number] [place] [address]- [address] Jan, [facility] [place] [address] [facility] [address] [id number] [place] [id number] Dec, [facility] [place] [facility] [address] [facility] [id number] [place] [address]- [address] Dec, [facility] [place] [address] [facility] [address] [id number] [place] [id number] Nov, [facility] [address] [facility] [id number] [place] [address]- [address] Nov, [facility] [place] [facility] [address] [facility] [id number] [place] [address]- [address] Aug, [facility] [place] [address] [facility] [address] [id number] [place] [id number] Aug, [facility] [place] [address] [facility] [address] [id number] [place] [id number] Jul, [facility] [address] [facility] [id number] [place] [address]- [address] Jul, [facility] [place] [address] [facility] [address] [id number] [place] [id number] Jul, [facility] [place] [facility] [address] [facility] [id number] [place] [address] Jul, [facility] [place] [address] [facility] [address] [id number] [place] [id number] Jun, [facility] [place] [address] [facility] [address] [id number] [place] [id number] Jun, [facility] [address] [facility] [id number] [facility] [place] [address]- [address] Jun, [facility] [place] [facility] [address] [id number] [place] [address]- [address] Jun, [facility] [place] [address] [id number] [place] [id number] May, [facility] [place] [facility] [address] [id number] [facility] May, [facility] [place] [address] [id number] [place] [id number] Mar, [facility] [place] [facility] [address] [id number] [place] [address]- [address] Mar, [facility] [place] [address] [id number] [place] [id number] February, [facility] [place] [facility] [address] [id number] [place] [address] February, [facility] [place] [facility] [address] [id number] [place] [address]- [address] Jan, [facility] [place] [address] [id number] [place] [id number] Jan, [facility] [place] [facility] [address] [id number] [facility] [place] [address]- [address]358 Jan, [facility] [place] [address] [id number] [place] [id number] Dec, [facility] [place] [address] [id number] [place] [id number] 18 Dec, 2013 [facility] [place] [facility] [address] [id number] [facility] [place] [address]- [address] 18 Dec, 2013 [facility] [place] [facility] [address] [id number] [place] [address]- [address]92 18 Dec, 2013 [facility] [place] [facility] [address] [id number] [place] [address]- [address] 14 Dec, 2013 [facility] [place] [address] [id number] [place] [address] Dec, [facility] [place] [facility] [address] [facility] [id number] [place] [address]- [address] Dec, [facility] [place] [address] [facility] [address] [id number] [place] [id number] Nov, [facility] [address] [facility] [id number] [place] [address] Nov, [facility] [address] [facility] [id number] [place] [address]- [address] Oct, [facility] [place] [address] [facility] [id number] [place] [id number] Oct, [facility] [address] [facility] [id number] [place] [address]46 Oct, [facility] [place] [address] [facility] [id number] [place] [id number] Oct, IMMUNIZATIONS No Known Immunizations SOCIAL HISTORY Never Assessed REASON FOR VISIT Medication question PLAN OF CARE VITAL SIGNS MEDICATIONS Unknown Medications RESULTS No Results PROCEDURES No Known procedures INSTRUCTIONS MEDICATIONS ADMINISTERED No Known Medications MEDICAL (GENERAL) HISTORY Type Description Date Surgical History breast reduction 1978 Surgical History right ankle fracture 1999 Surgical History right ear surgery 2014 Hospitalization History surgeries
--- OUTSIDE RECORDS SUMMARY | 2018-07-14 08:49 | XMS REPORT ---
Author Author ZI COY Organization eClinicalWorks Address Unknown Phone Unavailable Care Team Providers Care Form Builder Helper Name Role Phone ZI COY CP Unavailable [...] Instructions Start Date End Date Status Dosage Sulfamethoxazole-TMP DS [facility] [address]-98 800-160 MG Orally 2 times a day Sep 16, 2015 Sep 23, 2015 1 tablet Results No Known Results Summary Purpose eClinicalWorks Submission
--- OUTSIDE RECORDS SUMMARY | 2018-07-14 08:49 | XMS REPORT ---
Author Author ZI COY Organization [employer] Address Unknown Phone Unavailable Care Team Providers Care Buckram Sewer Name Role Phone ZI COY CP Unavailable Allergies No Known Allergies Problems Problem Type Condition Code Onset Dates Condition Status Problem Unspecified essential hypertension 401.9 Active Problem Mixed hyperlipidemia 272.2 Active Problem Impacted cerumen 380.4 Active Problem Mixed hyperlipidemia E78.2 Active Problem Unspecified otalgia 388.70 Active Problem Type 2 diabetes mellitus without complications E11.9 Active Problem Chest pain, unspecified 786.50 Active Problem Essential hypertension, benign 401.1 Active Problem Urinary tract infection, site not specified 599.0 Active Problem Obesity, unspecified 278.00 Active Assessment Essential (primary) hypertension I10 Active Problem Unspecified abnormal mammogram 793.80 Active Problem Other and unspecified hyperlipidemia 272.4 Active Assessment Mixed hyperlipidemia E78.2 Active Problem Routine gynecological examination V72.31 Active Assessment Type 2 diabetes mellitus without complications E11.9 Active Problem Diabetes mellitus without mention of complication, type II or unspecified type, not stated as uncontrolled 250.00 Active Medications No Known Medications Procedures Procedure Coding System Code Date [facility] CPT-4 NOBLL May 21, 2016 VENIPUNCT, ROUTINE* CPT-4 93164 May 21, 2016 GLYCATED HEMOGLOBIN TEST CPT-4 81806 May 21, 2016 Results No Known Results Summary Purpose eClinicalWorks Submission
--- OUTSIDE RECORDS SUMMARY | 2018-07-14 08:49 | XMS REPORT ---
Author LIZETTE Ruiz [facility] eClinicalWorks Address Unknown Phone Unavailable Care Team Providers Care Sawdust Machine Operator Name Role Phone LIZETTE BUITRAGO CP Unavailable Allergies, Adverse Reactions, Alerts Substance Reaction Event Type Azithromycin Info Not Available Drug Allergy Penicillins Info Not Available Non Drug Allergy Macrolides Info Not Available Non Drug Allergy Problems Problem Type Condition Code Onset Dates Condition Status Problem Essential hypertension, benign 401.1 Active Problem Obesity, unspecified 278.00 Active Problem Chest pain, unspecified 786.50 Active Problem Mixed hyperlipidemia E78.2 Active Assessment Mixed hyperlipidemia E78.2 Active Problem Allergic rhinitis due to pollen J30.1 Active Assessment Allergic rhinitis due to pollen J30.1 Active Assessment Prediabetes R73.09 Active Problem Type 2 diabetes mellitus without complications E11.9 Active Problem Unspecified otalgia 388.70 Active Problem Urinary tract infection, site not specified 599.0 Active Problem Prediabetes R73.09 Active Problem Essential hypertension I10 Active Assessment Routine gynecological examination Z01.419 Active Problem Unspecified abnormal mammogram 793.80 Active Assessment Screening for colon cancer Z12.11 Active Assessment Breast cancer screening Z12.39 Active Problem Diabetes mellitus without mention of complication, type II or unspecified type, not stated as uncontrolled 250.00 Active Problem Unspecified essential hypertension 401.9 Active Problem Other and unspecified hyperlipidemia 272.4 Active Problem Impacted cerumen 380.4 Active Assessment Essential hypertension I10 Active Problem Routine gynecological examination V72.31 Active Problem Mixed hyperlipidemia 272.2 Active Medications Medication Code System Code Instructions Start Date End Date Status Dosage Omeprazole [facility] [address]-19 20 mg Nov 15, 2013 take 1 capsule ( 20 mg) by oral route once daily before a meal Lisinopril [facility] [id number] 2.5MG TAKE ONE TABLET BY MOUTH ONCE DAILY. Aspirin [facility] [address]-70 81 mg Nov 15, 2013 chew 1 tablet (81 mg ) by oral route once daily ICaps Lutein & Zeaxanthin [facility] [address] - Orally Once a day 2 tabs Fluticasone Propionate [facility] [address]-75 50 MCG/ACT Nasally Once a day 1 spray in each nostril Procedures Procedure Coding System Code Date [facility] VISIT NEW PATIENT CPT-4 G0466 May 25, 2016 SCR PAP SMER;NEW PT OBTAIN PREP&CONVY-LAB CPT-4 Q0091 May 25, 2016 TEST FOR BLOOD, FECES CPT-4 61918 May 25, 2016 Preventive Care Est Pt. Age 65 and over CPT-4 86779 May 25, 2016 Vital Signs Date/Time: May 25, 2016 Cardiac Monitoring Heart Rate 64 bpm Weight 216.6 lbs Height 64 in BMI 37.18 Index Blood Pressure Diastolic 82 mmHg Blood Pressure Systolic 156 mmHg Results No Known Results Summary Purpose eClinicalWorks Submission
--- OUTSIDE RECORDS SUMMARY | 2018-07-14 08:49 | XMS REPORT ---
Author Author ZI COY Organization eClinicalWorks Address Unknown Phone Unavailable Care Team Providers Care Chairman & Chief Executive Officer Name Role Phone ZI COY CP Unavailable Allergies No Known Allergies Problems Problem Type Condition Code Onset Dates Condition Status Problem Routine gynecological examination V72.31 Active Problem Unspecified essential hypertension 401.9 Active Problem Diabetes mellitus without mention of complication, type II or unspecified type, not stated as uncontrolled 250.00 Active Problem Urinary tract infection, site not specified 599.0 Active Problem Obesity, unspecified 278.00 Active Problem Unspecified otalgia 388.70 Active Problem Mixed hyperlipidemia 272.2 Active Problem Impacted cerumen 380.4 Active Problem Chest pain, unspecified 786.50 Active Problem Essential hypertension, benign 401.1 Active Assessment Mixed hyperlipidemia 272.2 Active Assessment Essential hypertension, benign 401.1 Active Problem Unspecified abnormal mammogram 793.80 Active Assessment Diabetes mellitus without mention of complication, type II or unspecified type, not stated as uncontrolled 250.00 Active Problem Other and unspecified hyperlipidemia 272.4 Active Medications No Known Medications Procedures Procedure Coding System Code Date LIPID PANEL CPT-4 36358 Jul 16, 2015 COMPREHEN METABOLIC PANEL CPT-4 50111 Jul 16, 2015 VENIPUNCT, ROUTINE* CPT-4 92054 Jul 16, 2015 GLYCATED HEMOGLOBIN TEST CPT-4 74696 Jul 16, 2015 COMPLETE CBC W/AUTO DIFF WBC CPT-4 81940 Jul 16, 2015 Results Name Result Date Reference Range Unit Abnormality Flag ROUTINE VENIPUNCTURE A1C Summary Purpose eClinicalWorks Submission
--- OUTSIDE RECORDS SUMMARY | 2018-07-14 08:49 | XMS REPORT ---
Author Author ZI COY [facility] Address [address] [place] [address] Care Team Providers Care Warehouse Packaging Supervisor Name Role Phone ZI COY Unavailable PROBLEMS Type Condition ICD9-CM Code [id number] Code Onset Dates Condition Status SNOMED Code Problem Other and unspecified hyperlipidemia 272.4 Active 41943657 Problem Diabetes mellitus without mention of complication, type II or unspecified type, not stated as uncontrolled 250.00 Active 026107591 Problem Mixed hyperlipidemia 272.2 Active 661268381 Problem Essential (primary) hypertension I10 Active 35197127 Problem Type 2 diabetes mellitus without complications E11.9 Active 672993265 Problem Prediabetes R73.09 Active 622688489 Problem Essential hypertension I10 Active 95397719 Problem Mixed hyperlipidemia E78.2 Active 334534171 Problem Allergic rhinitis due to pollen J30.1 Active 62535935 Problem Unspecified abnormal mammogram 793.80 Active 321881904 Problem Chest pain, unspecified 786.50 Active 13356755 Problem Routine gynecological examination V72.31 Active 709203232291934 Problem Essential hypertension, benign 401.1 Active 9346150 Problem Unspecified otalgia 388.70 Active 85972855 Problem Urinary tract infection, site not specified 599.0 Active 11080714 Problem Impacted cerumen 380.4 Active 08056061 Problem Unspecified essential hypertension 401.9 Active 81770113 Problem Obesity, unspecified 278.00 Active 280087549 ALLERGIES Substance Reaction Event Type Date Status Azithromycin Unknown Drug Allergy February, Active Penicillins Unknown Non Drug Allergy February, Active Macrolides Unknown Non Drug Allergy February, Active SOCIAL HISTORY Never Assessed PLAN OF CARE Activity Details Follow Up prn Reason: VITAL SIGNS Height 64 in 2017-03-15 Weight 213.6 lbs 2017-03-15 Temperature 98.1 degrees Fahrenheit 2017-03-15 Heart Rate 76 bpm 2017-03-15 Respiratory Rate 16 2017-03-15 BMI 36.66 kg/m2 2017-03-15 Blood pressure systolic 126 mmHg 2017-03-15 Blood pressure diastolic 88 mmHg 2017-03-15 MEDICATIONS Medication Instructions Dosage Frequency Start Date End Date Duration Status Omeprazole 20 mg take 1 capsule (20 mg) by oral route once daily before a meal Oct, 30 days Active Multivitamin Adult - Active Fluticasone Propionate 50 MCG/ACT Nasally Once a day 1 spray in each nostril 24h Active Lisinopril 2.5MG TAKE ONE TABLET BY MOUTH ONCE DAILY. Active ICaps Lutein & Zeaxanthin - Orally Once a day 2 tabs 24h Active Aspirin 81 mg chew 1 tablet (81 mg) by oral route once daily Oct, Active RESULTS No Results PROCEDURES Procedure Date Ordered Result Body Site [facility] VISIT ESTABLISHED PATIENT March 15, 2017 IMMUNIZATIONS No Known Immunizations MEDICAL (GENERAL) HISTORY Type Description Date Surgical History breast reduction 1978 Surgical History right ankle fracture 1999 Surgical History right ear surgery 2014 Hospitalization History surgeries
--- OUTSIDE RECORDS SUMMARY | 2018-07-14 08:49 | XMS REPORT ---
Author Author ZI COY Organization eClinicalWorks Address Unknown Phone Unavailable Care Team Providers Care Content Designer Name Role Phone ZI COY CP Unavailable [...] Problem Essential hypertension, benign 401.1 Active Assessment Urinary tract infection, site not specified N39.0 Active Problem Unspecified abnormal mammogram 793.80 Active Problem Other and unspecified hyperlipidemia 272.4 Active Medications No Known Medications Procedures Procedure Coding System Code Date [facility] NOBLL Oct 21, 2015 URINALYSIS, AUTO, W/O SCOPE CPT-4 17680 Oct 21, 2015 Results Name Result Date Reference Range Unit Abnormality Flag UA LONG DIP (IN HOUSE) ----BRAYDEN 1+ 20151021 ----NIT neg 20151021 ----SG >=1.030 20151021 ----KET neg 20151021 ----PANKAJ neg 20151021 ----GLU neg 20151021 ----Odor no 20151021 ----pH 5.5 20151021 ----BLO 1+ 20151021 ----URO 1.0 E.U./dL 20151021 ----Protein neg 20151021 ----Lot # [id number] 20151021 ----Exp date 20151021 ----Clarity clear 20151021 ----Color yellow 20151021 Summary Purpose eClinicalWorks Submission
--- OUTSIDE RECORDS SUMMARY | 2018-07-14 08:49 | XMS REPORT ---
Author Author ZI COY Organization eClinicalWorks Address Unknown Phone Unavailable Care Team Providers Care Engineering Equipment Operator Name Role Phone ZI COY CP Unavailable [...] Problem Essential hypertension, benign 401.1 Active Assessment Hematuria R31.9 Active Problem Unspecified abnormal mammogram 793.80 Active Problem Other and unspecified hyperlipidemia 272.4 Active Medications No Known Medications Procedures Procedure Coding System Code Date URINE CULTURE/COLONY COUNT CPT-4 11963 Sep 16, 2015 URINALYSIS, AUTO, W/O SCOPE CPT-4 94188 Sep 16, 2015 Results Name Result Date Reference Range Unit Abnormality Flag UA LONG DIP (IN HOUSE) ----BRAYDEN Trace 20150916 ----NIT Positive 20150916 ----SG >=1.030 20150916 ----KET neg 20150916 ----PANKAJ 2+ 20150916 ----GLU neg 20150916 ----Odor no 20150916 ----pH 6.5 20150916 ----BLO 3+ 20150916 ----URO 1.0 E.U./dL 20150916 ----Protein 3+ 20150916 ----Lot # [id number] ----Exp date 20150916 ----Clarity cloudy 20150916 ----Color brown 20150916 Summary Purpose eClinicalWorks Submission
[2018-07-14 08:50] VITALS: BP 139/87
--- OUTSIDE RECORDS SUMMARY | 2018-07-14 08:50 | XMS REPORT | Continuity of Care Document ---
Author Author [facility] Address Unknown Phone Unavailable Allergies Active Description Code Type Severity Reaction Onset Reported/Identified Relationship to Patient Clinical Status Yes azithromycin [id number] Drug Allergy Unknown N/A 03/17/2011 Yes azithromycin Drug Allergy N/ A N/A 11/15/2013 Yes Penicillins Drug Allergy N/A N/A 11/15/2013 Yes Penicillins [id number] Drug Allergy Unknown N/A 07/06/2018 Medications There is no data. 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 HYPERLIPIDEMIA 11/09/2013 ZI OCY MD 401.1 BENIGN ESSENTIAL HYPERTENSION 11/09/2013 ZI COY MD 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 HYPERLIPIDEMIA 11/09/2013 ZI CYO MD 401.1 BENIGN ESSENTIAL HYPERTENSION 11/09/2013 ZI COY MD 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 HYPERLIPIDEMIA 11/09/2013 ZI COY MD 401.1 BENIGN ESSENTIAL HYPERTENSION 11/15/2013 PATRICA MCGRATH DO 250.00 DIABETES II CONTROLLED (UNCOMPLICATED) 11/15/2013 PATRICA MCGRATH DO 272.4 HYPERLIPIDEMIA 11/15/2013 PATRICA MCGRATH DO 401.9 HYPERTENSION, UNSPECIFIED ESSENTIAL 11/15/2013 MCGRATH DO, PATRICA K V72.31 OFFICE CLINICIAN EXAM, ROUTINE 11/15/2013 MCGRATH DO, PATRICA K 250.00 DIABETES II CONTROLLED (UNCOMPLICATED) 11/15/2013 MCGRATH DO, PATRICA K 272.4 HYPERLIPIDEMIA 11/15/2013 MCGRATH DO, PATRICA K 401.9 HYPERTENSION, UNSPECIFIED ESSENTIAL 11/15/2013 MCGRATH DO, PATRICA K V72.31 OFFICE CLINICIAN EXAM, ROUTINE 11/15/2013 ZI COY MD 250.00 DIABETES II CONTROLLED (UNCOMPLICATED) 11/15/2013 ZI COY MD 272.4 HYPERLIPIDEMIA 11/15/2013 ZI COY MD 401.9 HYPERTENSION, UNSPECIFIED ESSENTIAL 11/15/2013 ZI COY MD V72.31 OFFICE CLINICIAN EXAM, ROUTINE 11/15/2013 ZI COY MD 250.00 DIABETES II CONTROLLED (UNCOMPLICATED) 11/15/2013 ZI COY MD 272.4 HYPERLIPIDEMIA 11/15/2013 ZI COY MD 401.9 HYPERTENSION, UNSPECIFIED ESSENTIAL 11/15/2013 ZI COY MD V72.31 OFFICE CLINICIAN EXAM, ROUTINE 11/15/2013 ZI COY MD 250.00 DIABETES II CONTROLLED (UNCOMPLICATED) 11/15/2013 ZI COY MD 272.4 HYPERLIPIDEMIA 11/15/2013 ZI COY MD 401.9 HYPERTENSION, UNSPECIFIED ESSENTIAL 11/15/2013 ZI COY MD V72.31 OFFICE CLINICIAN EXAM, ROUTINE 11/15/2013 ZI COY MD 250.00 DIABETES II CONTROLLED (UNCOMPLICATED) 11/15/2013 ZI COY MD 272.4 HYPERLIPIDEMIA 11/15/2013 ZI COY MD 401.9 HYPERTENSION, UNSPECIFIED ESSENTIAL 11/15/2013 ZI COY MD V72.31 OFFICE CLINICIAN EXAM, ROUTINE 11/15/2013 ZI COY MD 250.00 DIABETES II CONTROLLED (UNCOMPLICATED) 11/15/2013 ZI COY MD 272.4 HYPERLIPIDEMIA 11/15/2013 ZI COY MD 401.9 HYPERTENSION, UNSPECIFIED ESSENTIAL 11/15/2013 ZI COY MD V72.31 OFFICE CLINICIAN EXAM, ROUTINE 01/03/2014 ZI COY MD 278.00 OBESITY 01/03/2014 ZI COY MD 599.0 URINARY TRACT INFECTION 01/03/2014 ZI COY MD 278.00 OBESITY 01/03/2014 ZI COY MD 599.0 URINARY TRACT INFECTION 01/03/2014 ZI COY MD 278.00 OBESITY 01/03/2014 ZI COY MD 599.0 URINARY TRACT INFECTION 01/03/2014 ZI COY MD 278.00 OBESITY 01/03/2014 ZI COY MD 599.0 URINARY TRACT INFECTION 01/03/2014 ZI COY MD 278.00 OBESITY 01/03/2014 ZI COY MD 599.0 URINARY TRACT INFECTION 03/06/2014 ZI COY MD 786.50 CHEST PAIN 03/06/2014 ZI COY MD 786.50 CHEST PAIN 03/06/2014 ZI COY MD 786.50 CHEST PAIN 04/11/2014 ZI COY MD 380.4 CERUMEN IMPACTION 04/11/2014 ZI COY MD 380.4 CERUMEN IMPACTION 07/17/2014 ZI COY MD 793.80 UNSPECIFIED (ABNORMAL) MAMMOGRAM 07/17/2014 ZI COY MD 793.80 UNSPECIFIED (ABNORMAL) MAMMOGRAM 12/26/2014 ZI COY MD 388.70 OTALGIA UNSPECIFIED 07/06/2018 TOMMY CH MD, Ot Z01.818 ENCOUNTER FOR OTHER PREPROCEDURAL EXAMIN 07/07/2018 TOMMY CH MD, Ot Z01.818 ENCOUNTER FOR OTHER PREPROCEDURAL EXAMIN Procedures Code [place] [address] CBC 11/09/20134711319 GFR CALC (RESULT ONLY) 11/09/2013 52024 CMP 11/09/2013 43638 LIPID PANEL 11/09/2013 96623 A1C (IN-HOUSE) 11/15/2013 56730 ROUTINE VENIPUNCTURE 11/18/2013 78184 UA LONG DIP 01/03/2014 82585 CULTURE URINE 01/04/2014 27211 UA LONG DIP 02/06/2014 85786 CULTURE URINE 02/07/2014 52532 XRAY CHEST 2 VIEW 03/09/2014 UNKNOWN PB AVINA 03/09/2014 13168 MAMMOGRAM DX, PANKAJ 04/15/2014 Results Test Result Range A1C - 07/16/17 10:14 HEMOGLOBIN A1c 5.7 % of total Hgb <5.7 CBC - 06/09/18 08:41 WHITE BLOOD CELL COUNT 5.1 Thousand/uL 3.8-10.8 RED BLOOD CELL COUNT 4.64 Million/uL 3.80-5.10 HEMOGLOBIN 14.2 g/dL 11.7-15.5 HEMATOCRIT 41.6 % 35.0-45.0 MCV 89.7 fL 80.0-100.0 MCH 30.6 pg 27.0-33.0 MCHC 34.1 g/dL 32.0-36.0 RDW 12.8 % 11.0-15.0 PLATELET COUNT 249 Thousand/uL 140-400 MPV 11.0 fL 7.5-12.5 ABSOLUTE NEUTROPHILS 2958 cells/uL 0884-2235 ABSOLUTE LYMPHOCYTES 1525 cells/uL 850-3900 ABSOLUTE MONOCYTES 474 cells/uL 200-950 ABSOLUTE EOSINOPHILS 112 cells/uL 15-500 ABSOLUTE BASOPHILS 31 cells/uL 0-200 NEUTROPHILS 58 % NRG LYMPHOCYTES 29.9 % NRG MONOCYTES 9.3 % NRG EOSINOPHILS 2.2 % NRG BASOPHILS 0.6 % NRG Encounters ACCT No. Visit Date/Time Discharge Status Pt. Type Provider Facility Loc./Unit Complaint [id number] 12/26/2014 14:17:00 12/26/2014 23:59:59 [facility] Outpatient ZI COY MD [id number] 04/11/2014 09:52:00 04/11/2014 23:59:59 [facility] Outpatient ZI COY MD [id number] 03/06/2014 09:32:00 03/06/2014 23:59:59 [facility] Outpatient ZI COY MD [id number] 02/06/2014 11:03:00 02/06/2014 23:59:59 [facility] Outpatient ZI COY MD [id number] 01/03/2014 10:27:00 01/03/2014 23:59:59 [facility] Outpatient ZI COY MD [id number] 12/05/2013 13:12:00 12/05/2013 23:59:59 [facility] Outpatient PATRICA MCGRATH DO [id number] 11/15/2013 08:23:00 11/15/2013 23:59:59 [facility] Outpatient PATRICA MCGRATH DO [id number] 04/10/2018 09:56:39 04/10/2018 23:59:59 DIS Outpatient Nataly Coronel [facility] [id number] 10/10/2017 10:21:40 10/10/2017 23:59:59 DIS Outpatient Charito Lemon [facility] [id number] 10/10/2017 09:40:00 10/10/2017 23:59:59 DIS Outpatient Nataly Coronel [facility] [id number] 09/12/2017 14:59:31 09/12/2017 23:59:59 DIS Outpatient Charito Lemon Gia [facility] [id number] 09/12/2017 14:00:00 09/12/2017 23:59:59 DIS Outpatient Nataly Coronel [facility] [id number] 03/25/2018 09:40:00 03/25/2018 23:59:59 CLS Outpatient FARIDE[facility]UKE [facility]CLISS [facility] [id number] 06/09/2018 08:20:00 Document Registration [id number] 07/16/2017 09:00:00 Document Registration [id number] 07/06/2018 05:34:00 07/06/2018 12:12:00 DIS Outpatient TOMMY CH MD [facility] PREOP TONGUE LESION [id number] 07/14/2018 09:00:00 PEN Preadmit TOMMY CH MD [facility] SDC TONGUE LESION
[2018-07-14] MEDS ORDERED: LIDOCAINE/EPI 1%-1:200,000 (XYLOCAINE) 10 ML VIAL ONE (09:50)
[2018-07-14] MEDS ORDERED: MIDAZOLAM 2 MG/2 ML (VERSED) VIAL ONE (09:57)
[2018-07-14] MEDS ORDERED: fentaNYL INJECTION 100 MCG/2 ML AMP ONE (09:57)
[2018-07-14] MEDS ORDERED: proPOfol 200 MG/20 ML (DIPRIVAN) VIAL IV ONE (09:57)
[2018-07-14] MEDS ORDERED: LIDOCAINE PF 2% 2 ML (XYLOCAINE) VIAL ONE (09:57)
[2018-07-14] MEDS ORDERED: SEVOFLURANE (ULTANE) 15 ML INHAL SOLN ONE ×2 (09:57→10:05)
[2018-07-14] MEDS ORDERED: SUCCINYLCHOLINE INJ 100 MG/5 ML SYR ONE (10:05)
[2018-07-14] MEDS ORDERED: DEXAMETHASONE 10 MG/ML (DECADRON) 1 ML VIAL ONE (10:05)
[2018-07-14] MEDS ORDERED: ONDANSETRON 4 MG/2 ML (SDV) Z0FRAN ONE (10:05)
--- NOTE | 2018-07-14 10:41 | Progress Note-Pre Operative ---
Pre-Operative Progress Note H&P Reviewed The H&P was reviewed, patient examined and no changes noted. Date Seen by Provider: Jul 14, 2018 Time Seen by Provider: 10: Date H&P Reviewed: Jul 14, 2018 Time H&P Reviewed: :30 Pre-Operative Diagnosis: Posterior Tongue Lesion TOMMY CH MD Jul 14, 2018 10:41 am
--- NOTE | 2018-07-14 11:17 | Progress Note-Post Operative ---
Post-Operative Progess Note Surgeon (s)/Import And Export Clerk (s) Surgeon TOMMY CH MD Import And Export Clerk n/a Pre-Operative Diagnosis Posterior Tongue Lesion Post-Operative Diagnosis same Post-Op Procedure Note Date of Procedure: Jul 14, 2018 Name of Procedure Performed: Excision of Right Posterior Tongue Lesion Description & Findings Description and Findings: n/a Anesthesia Type get Estimated Blood Loss minimal Packing none. Specimen(s) collected/removed right post tongue lesion for frozen TOMMY CH MD Jul 14, 2018 11:17 am
[2018-07-14] MEDS ORDERED: HYDROcodone/APAP 7.5MG-325 MG/15 ML (LORTAB) UDC PO PRN (11:30)
[2018-07-14] MEDS ORDERED: ACETAMINOPHEN 325 MG TABLET PO PRN (11:30)
[2018-07-14] MEDS ORDERED: morphine INJ 10 MG/ML 1ML (SYR OR VIAL) IVP ONE (11:45)
[2018-07-14] MEDS ORDERED: fentaNYL INJECTION 100 MCG/2 ML AMP IVP ONE (11:45)
--- NOTE | 2018-07-14 11:58 | Anesthesia-General Post-Op ---
General Patient Condition Mental Status/LOC: Same as Preop Cardiovascular: Satisfactory Nausea/Vomiting: Absent Respiratory: Satisfactory Pain: Controlled Complications: Absent Post Op Complications Complications None Follow Up Care/Instructions Patient Instructions None needed. Anesthesia/Patient Condition Patient Condition Patient is doing well, no complaints, stable vital signs, no apparent adverse anesthesia problems. No complications reported per nursing. LAURA COOPER CRNA Jul 14, 2018 11:58
[2018-07-14 12:30] VITALS: BP 130/70
[2018-07-14 13:00] VITALS: BP 124/71
[2018-07-14] MEDS: ONDANSETRON 4 MG/2 ML (SDV) Z0FRAN IVP PRN ×2 (13:10→13:11)
[2018-07-14] MEDS ORDERED: HYDR15SO8 PO (13:11)
[2018-07-14 13:30] VITALS: BP 140/79
[2018-07-14 13:40] VITALS: BP 140/79
[2018-07-14] MEDS ORDERED: LIDOCAINE 2% VISCOUS 15 ML UDC PO SCH (16:00)
== END 2018-07-14 13:45 | disposition home or self-care (01) ==
LOC: SDC 08:27
PROVIDERS: ATTEND Otolaryngology Otolaryngology/Facial Plastic Surgery
DX: K14.8 Other diseases of tongue (principal); I10 Essential (primary) hypertension; K21.9 Gastro-esophageal reflux disease without esophagitis; Z79.82 Long term (current) use of aspirin; Z79.899 Other long term (current) drug therapy
CPT/HCPCS: 87081